=== PATIENT | male | born 1945 | race Caucasian/White ===

== ENCOUNTER 2019-12-16 13:37 | Emergency (ER) | payer MEDICARE, BC, SELFPAY ==
[2019-12-16 13:45] VITALS: BP 157/99; PULSE 62; RESP 16; TEMP 36.3; O2SAT 100; BMI 29.8
--- NOTE | 2019-12-16 13:45 | DI.US.S_ITS ---
PROCEDURE: US PERIPH VENOUS LOW EXTREM RT INDICATIONS: PAIN TECHNIQUE: Real-time imaging, as well as color and pulse Doppler interrogation, were performed of the lower extremity deep veins from the inguinal ligament to the popliteal fossa. COMPARISON: None. FINDINGS: The common femoral, femoral and popliteal veins are normally compressible, and free of intraluminal thrombus. Color and pulse Doppler demonstrate normal phasic intraluminal flow. There is normal augmentation response to distal compression maneuver. There is a prominent Garza's cyst identified within the popliteal fossa. IMPRESSION: No evidence of deep vein thrombosis of the right lower extremity. Dictated by: Addison Sanchez M.D. on 12/16/2019 at 13:13 Approved by: Addison Sanchez M.D. on 12/16/2019 at 13:20
--- NOTE | 2019-12-16 13:58 | ED.LOWEXIN ---
HPI - Extremity Injury (Lower) General Chief Complaint: Extremity Injury, Lower Stated Complaint: Possible blood clot right leg Time Seen by Provider: 12/16/19 13:39 Source: patient Mode of arrival: Ambulatory Limitations: no limitations History of Present Illness HPI Narrative: Patient is a 74-year-old male here for evaluation of pain behind his right leg. Patient states that it started this morning. He was sitting at that time. It did hurt behind his right knee and radiated down his calf and up his thigh. No chest pain or shortness of breath. He contacted his primary provider who told him to come to the emergency department for evaluation of potential blood clot. The patient has never had a blood clot in the past. Has had some travel recently but not an extended period of time. No history cancer. He states that his symptoms now have improved since earlier today but not completely resolved. Related Data Allergies Allergy/AdvReac Type Severity Reaction Status Date / Time morphine Allergy Hives Verified 12/16/19 13:50 Sulfa (Sulfonamide Allergy Hives Verified 12/16/19 13:50 Antibiotics) Review of Systems Constitutional Constitutional: Denies fever(s) and Denies headache(s) ENT Ears, Nose, Mouth, and Throat: Denies headache(s) Cardiovascular Cardiovascular: Denies chest pain and Denies dyspnea Respiratory Respiratory: Denies cough and Denies dyspnea Gastrointestinal Gastrointestinal: Denies abdominal pain, Denies nausea and Denies vomiting Musculoskeletal Musculoskeletal: Denies arthralgias and Denies myalgias Integumentary/Breasts Skin/Breast: Denies lesions and Denies rash Neurologic Neurologic: Denies behavioral changes and Denies headache(s) Psychiatric Psychiatric: Denies behavioral changes Hematologic/Lymphatic Hematologic/Lymphatic: Denies easy bleeding and Denies easy bruising Patient History Medical History Synovial cyst of popliteal space [Garza], left knee (Acute) Social History Smoking Status: Never smoker Smoking Status: Never smoker alcohol intake frequency: 0-2 drinks per day Substance Use Type: does not use Exam Initial Vital Signs Initial Vital Signs: Vital Signs Temperature 97.4 F L 12/16/19 13:45 Pulse Rate 62 12/16/19 13:45 Respiratory Rate 16 12/16/19 13:45 Blood Pressure 157/99 H 12/16/19 13:45 Pulse Oximetry 100 12/16/19 13:45 Const General: cooperative, comfortable and well developed Limitations: mental status not altered HENMT Head: normal to inspection and normocephalic Resp Effort & Inspection: normal respiratory effort Cardio Rate: regular rate Skin Lesions: no lesions Rashes: no rashes Neuro General: patient alert, patient awake and patient oriented x3 Extrem Other: Tenderness specifically posterior to the right knee. No swelling of the right lower extremity. Patient able to flex and extend with minimal discomfort Psych Appearance: grossly normal and well kempt Course Orders Ordered: ED Orders 12/16/19 13:45 US periph venous low extrem rt Stat Vital Signs Vital signs: Vital Signs - 8 hr 12/16/19 13:45 12/16/19 14:43 Temperature 97.4 F L Pulse Rate 62 63 Respiratory Rate 16 14 Blood Pressure 157/99 H 157/99 H Pulse Oximetry 100 99 MDM - Extremity Injury (Lower) Imaging Data US - DVT: Radiologist's Impression: [address] [address] Ultrasound Report Signed Patient: Stanley Hopkins [facility]#: [id number] : 8Acct:[id number] Age/Sex: 74 / MDate of Service: 12/16/19 Loc: ED Accession Number: [id number] Procedure: US perip venous low extrem rt Ordering Provider: Stanley Villalpando D.O. PROCEDURE: US PERIPH VENOUS LOW EXTREM RT INDICATIONS: PAIN TECHNIQUE: Real-time imaging, as well as color and pulse Doppler interrogation, were performed of the lower extremity deep veins from the inguinal ligament to the popliteal fossa. COMPARISON: None. FINDINGS: The common femoral, femoral and popliteal veins are normally compressible, and free of intraluminal thrombus. Color and pulse Doppler demonstrate normal phasic intraluminal flow. There is normal augmentation response to distal compression maneuver. There is a prominent Garza's cyst identified within the popliteal fossa. IMPRESSION: No evidence of deep vein thrombosis of the right lower extremity. Dictated by: Addison Sanchez M.D. on 12/16/2019 at 13:13 Approved by: Addison Sanchez M.D. on 12/16/2019 at 13:20 [facility] Narrative Medical decision making narrative: Patient's ultrasound negative for DVT however does show a Garza's cyst. Patient has had a Garza cyst on the left. No indication of an infection. No indication for anticoagulation. Patient given return precautions and follow-up instructions. He expressed understanding agreement. Discharge Plan Departure Patient Disposition: Home Clinical Impression: Garza's cyst of knee Qualifiers: Laterality: right Qualified Code(s): M71.21 - Synovial cyst of popliteal space [Garza], right knee Discharge Date/Time: 12/16/19 14:46 Instructions: DI for Garza's Cyst Activity Restrictions/Additional Instructions: The ultrasound today did not show any signs of a blood clot. It did show a Garza cyst behind your right knee. Recommend that you contact your primary provider about further workup and potential referral to see Orthopedic surgery. Return to the emergency department for any new or worsening symptoms Referrals: Geovany Viera [Primary Care Provider] -
[2019-12-16 14:43] VITALS: BP 157/99; PULSE 63; RESP 14; O2SAT 99
== END 2019-12-16 14:46 | disposition home or self-care (01) ==
PROVIDERS: Emergency Provider Emergency Medicine; PCP Chiropractor
DX: M71.21 Synovial cyst of popliteal space [Baker], right knee (principal)
CPT/HCPCS: 36415; 93971; 99283; 99284

== ENCOUNTER 2022-01-14 12:43 | Emergency (ER) | payer MEDICARE, BC, SELFPAY ==
[2022-01-14 12:47] VITALS: BP 148/76; PULSE 70; RESP 12; TEMP 36.4; O2SAT 98; BMI 29.5
--- NOTE | 2022-01-14 12:52 | DI.RAD.S_ITS ---
PROCEDURE: XR CHEST 1V INDICATIONS: chest pain TECHNIQUE: One view of the chest was acquired. COMPARISON: None. FINDINGS: Surgical changes and devices: None. Lungs and pleura: Lungs are clear. No pleural effusions or pneumothorax. Mediastinum: Mediastinal contours appear normal. Heart size is normal. Bones and chest wall: No suspicious bony lesions. Overlying soft tissues appear unremarkable. IMPRESSION: No acute cardiopulmonary disease. Dictated by: Katheryn Islas M.D. on 01/14/2022 at 14:47 Approved by: Katheryn Islas M.D. on 01/14/2022 at 14:47
[2022-01-14 13:27] LABS: Add Manual Diff / Slide Review NO; Basophils Absolute Auto 0 /uL (0-100); Basophils Percent Auto 0.5 % (0-2); Eosinophils Absolute Auto 100 /uL (0-450); Eosinophils Percent Auto 1.7 % (2-4); Hematocrit 43.8 % (41-53); Lymphocytes Absolute Auto 1900 /uL (1100-4500); Lymphocytes Percent Auto 25.6 % (25-40); Mean Corpuscular HGB Conc 34.4 % (30-36); Mean Corpuscular Hemoglobin 31.4 PG (26-34); Mean Corpuscular Volume 91.3 fL (80-100); Monocytes Absolute Auto 800 /uL (0-900); Monocytes Percent Auto 10.4 % (3-14); Neutrophils Absolute Auto 4600 /uL (1500-7000); Neutrophils Percent Auto 61.8 % (50-75); Platelet Count 271 X10^3/uL (150-400); Red Blood Cell Count 4.79 X10^6/uL (4.5-5.9); Red Cell Distribution Width 13.2 % (11.6-14.8); White Blood Cell Count 7.5 X10^3/uL (4.5-11.0)
--- NOTE | 2022-01-14 13:35 | ED_ITS ---
HPI - Chest Pain General Chief Complaint: Chest Pain Stated Complaint: SOB, indegestion, dizzy- ref by PCP Time Seen by Provider: 01/14/22 13:10 History of Present Illness HPI narrative: Patient is a 76-year-old male with history of hypertension hyperlipidemia presenting with heart palpitations. He said he has a history of acid reflux he usually gets it at night he takes Tums for it goes away. This happens to him regularly. This morning after eating Quiche she is he felt some acid reflux but really felt that his heart was beating fast. He had some shortness of breath as well. He had shortness of breath both with exertion and at rest. His no fever or chills. He says it lasted for about an hour. He was not dizzy or lightheaded. He has a heart rate monitor on he says his heart rate was was about 70 which he said is not that fast and I agree. He has no history of blood clots he has not traveled anywhere. He slept fine last night. He has not had any fever or chills. Related Data Allergies Allergy/AdvReac Type Severity Reaction Status Date / Time morphine Allergy Hives Verified 01/14/22 12:51 Sulfa (Sulfonamide Allergy Hives Verified 01/14/22 12:51 Antibiotics) Review of Systems Review of Systems Narrative: GENERAL: Denies chills, fatigue, malaise, fever, sweats, travel HEENT: Denies sinus pain, ear pain, sore throat, difficulty swallowing, neck pain RESPIRATORY: Denies dyspnea, cough, wheezing, hemoptysis, sputum. CARDIOVASCULAR: See HPI GASTROINTESTINAL: Denies nausea, vomiting, abdominal pain, diarrhea, constipation, melena. : Denies dysuria, frequency, incontinence, hematuria, urinary retention, flank pain. MUSCULOSKELETAL: Denies weakness, joint pain, or bony pain SKIN: No rash, no erythema, no pruritus NEUROLOGIC: Denies weakness, dizziness, headache, numbness, change in speech, confusion PSYCHIATRIC: No concerning psychosocial issues. 12 point review of systems is negative except for those stated above and HPI Patient History Medical History (Updated 01/14/22 @ 14:39 by Tona Humphreys DO) Synovial cyst of popliteal space [Garza], left knee Social History Smoking Status: Never smoker Smoking Status: Never smoker alcohol intake frequency: 0-2 drinks per day Substance Use Type: does not use Exam Initial Vital Signs Initial Vital Signs: Vital Signs Temperature 97.6 F 01/14/22 12:47 Pulse Rate 70 01/14/22 12:47 Respiratory Rate 12 01/14/22 12:47 Blood Pressure 148/76 H 01/14/22 12:47 Pulse Oximetry 98 01/14/22 12:47 Oxygen Delivery Method 01/14/22 12:47 GENERAL: Alert pleasant 76-year-old and in no acute distress. HEENT: Head atraumatic,EOMI, pupils reactive, face symmetric, moist mucous membranes CARDIOVASCULAR: Regular rate and rhythm without murmurs, rubs or gallops. RESPIRATORY: Breath sounds equal bilaterally, no wheezes rales or rhonchi. ABDOMEN: Soft, nontender. Normoactive bowel sounds all 4 quadrants. No guarding or rebound. EXTREMITIES: Normal range of motion, no clubbing or edema. Neurovascularly intact NEUROLOGICAL: Alert and oriented x4.Normal gait and speech. SKIN: Warm, dry, no laceration, no petechiae, no rashes or lesions. Scores HEART Score Heart Score history: Slightly Suspicious Heart Score EKG: Normal Heart Score Age: > or = 65 years old Heart Score risk factors: 1-2 risk factors Heart Score troponin: < or = to normal limit Heart Score Total: 3 Course Orders Ordered: ED Orders 01/14/22 12:47 EKG-12 Lead Stat 01/14/22 12:52 XR chest 1V Stat 01/14/22 13:20 Complete Blood Count AUTO DIFF Stat Comprehensive Metabolic Panel Stat Lipase Stat Magnesium Stat Troponin & CK Cardiac Panel Stat Vital Signs Vital signs: Vital Signs - 8 hr 01/14/22 12:47 01/14/22 14:46 Temperature 97.6 F Pulse Rate 70 51 L Respiratory Rate 12 19 Blood Pressure 148/76 H 119/67 Pulse Oximetry 98 100 Oxygen Delivery Method Room Air Room Air MDM - Chest Pain Lab Data Result diagrams: 01/14/22 13:20 01/14/22 13:20 Labs: Lab Results 01/14/22 01/14/22 Range/Units 13:20 13:20 WBC 7.5 (4.5-11.0) X10^3/uL RBC 4.79 (4.5-5.9) X10^6/uL Hgb 15.0 (13.5-17.5) g/dL Hct 43.8 (41-53) % MCV 91.3 (80-100) fL MCH 31.4 (26-34) PG MCHC 34.4 (30-36) % RDW 13.2 (11.6-14.8) % Plt Count 271 (150-400) X10^3/uL Neut % (Auto) 61.8 (50-75) % Lymph % (Auto) 25.6 (25-40) % [place] % (Auto) 10.4 (3-14) % Eos % (Auto) 1.7 L (2-4) % Baso % (Auto) 0.5 (0-2) % Neut # (Auto) 4600 (8930-6367) /uL Lymph # (Auto) 1900 (4604-5199) /uL [place] # (Auto) 800 (0-900) /uL Eos # (Auto) 100 (0-450) /uL Baso # (Auto) 0 (0-100) /uL Sodium 139 (137-145) mmol/L Potassium 3.9 (3.4-5.1) mmol/L Chloride 107 (98-107) mmol/L Carbon Dioxide 28 (22-32) mmol/L BUN 15 (9-20) mg/dL Creatinine 1.01 (0.66-1.25) mg/dL Estimated GFR > 60 (>60) mL/min BUN/Creatinine Ratio 14.9 (6-22) Glucose 100 (80-110) mg/dL Calcium 8.6 (8.4-10.2) mg/dL Magnesium 2.1 (1.6-2.3) mg/dL Total Bilirubin 0.6 (0.2-1.3) mg/dL AST 24 (17-59) IU/L ALT 27 (<50) IU/L Alkaline Phosphatase 52 (38-126) U/L Total Creatine Kinase 51 L (55-170) U/L CK-MB (CK-2) TNP CK-MB (CK-2) Rel Index TNP Troponin I < 0.012 (0.01-0.034) ng/mL Total Protein 6.5 (6.3-8.2) g/dL Albumin 3.9 (3.5-5.0) g/dL Globulin 2.6 (1.7-4.1) g/dL Albumin/Globulin Ratio 1.5 (1.0-2.8) Lipase 152 (23-300) U/L Imaging Data Chest x-ray: Radiologist's Impression: PROCEDURE:? XR CHEST 1V ? INDICATIONS:? chest pain ? TECHNIQUE:? One view of the chest was acquired.? ? COMPARISON:? None. ? FINDINGS:? ? Surgical changes and devices:? None.? ? Lungs and pleura:? Lungs are clear.? No pleural effusions or pneumothorax.? ? Mediastinum:? Mediastinal contours appear normal.? Heart size is normal.? ? Bones and chest wall:? No suspicious bony lesions.? Overlying soft tissues appear unremarkable.? ? IMPRESSION:? No acute cardiopulmonary disease. ? ? Dictated by: Katheryn Islas M.D. on 01/14/2022 at 14:47 ? ? Approved by: Katheryn Islas M.D. on 01/14/2022 at 14:47 ? ECG Data Interpretation: Normal sinus rhythm rate 60 p.r. interval 172 QRS [address] changes no T- wave inversions similar to previous EKG MDM Narrative Medical decision making narrative: Patient had initially presenting with some palpitations. No actual chest pain. He has 2- troponins. He does have a history of GERD symptoms are relieved with Tums. At this time I recommend he have a Holter monitor as an outpatient. He may require further cardiac testing with his primary care provider but does not need to stay in the hospital. Discharge Plan Departure Patient Disposition: Home Clinical Impression: Heart palpitations, Atypical chest pain Instructions: Arrhythmias, DI for Atypical Chest Pain Activity Restrictions/Additional Instructions: *You have been diagnosed with palpitation, atypical chest pain *What to do: At this time blood work is overall reassuring. I recommend outpatient Holter monitor that your PCP can set you up with. If your chest pain should change in any way please return to the emergency department. He may actually need further outpatient testing such as a stress test and/or echocardiogram with her PCP. *Continue to take medications as directed *Follow up with your primary care provider in 2-3 days or call [phone] *Return to ER if you should have shortness of breath while walking, chest discomfort, dizziness, heart rate greater than 115 for longer than 1 hour or any new, worsening or concerning symptoms Referrals: Geovany Viera [place] [Primary Care Provider] - Visit Report Forms: Patient Portal/API
[2022-01-14 13:42] LABS: Alanine Aminotransferase 27 IU/L (<50); Albumin 3.9 g/dL (3.5-5.0); Albumin Globulin Ratio 1.5 (1.0-2.8); Alkaline Phosphatase 52 U/L (38-126); Aspartate Aminotransferase 24 IU/L (17-59); BUN Creatinine Ratio 14.9 (6-22); Bilirubin Total 0.6 mg/dL (0.2-1.3); Blood Urea Nitrogen 15 mg/dL (9-20); Calcium 8.6 mg/dL (8.4-10.2); Carbon Dioxide 28 mmol/L (22-32); Chloride 107 mmol/L (98-107); Creatine Kinase 51 U/L (55-170); Estimated Glomerular Filt Rate > 60 mL/min (>60); Globulin 2.6 g/dL (1.7-4.1); Glucose 100 mg/dL (80-110); HEMOLYSIS < 15 (0-50); Lipase 152 U/L (23-300); Magnesium 2.1 mg/dL (1.6-2.3); Potassium 3.9 mmol/L (3.4-5.1); Sodium 139 mmol/L (137-145); Total Protein 6.5 g/dL (6.3-8.2)
[2022-01-14 13:54] LABS: Troponin I < 0.012 ng/mL (0.01-0.034)
[2022-01-14 14:46] VITALS: BP 119/67; PULSE 51; RESP 19; O2SAT 100
== END 2022-01-14 14:46 | disposition home or self-care (01) ==
PROVIDERS: Emergency Provider Emergency Medicine; PCP Chiropractor
DX: R00.2 Palpitations (principal); R07.89 Other chest pain
CPT/HCPCS: 71045; 80053; 82550; 83690; 83735; 84484; 85025; 93005; 93010; 99281; 99284